=== PATIENT | male | born 1960 | race Caucasian/White ===

== ENCOUNTER 2018-06-27 13:58 | Emergency (ER) | payer SELFPAY ==
[~2018-06-27] VITALS: Ht 182.9 cm; Wt 70.3 kg
[2018-06-27 14:36] VITALS: Ht 182.9 cm; Wt 70.3 kg
[2018-06-27 15:03] LABS: APPEARANCE CLEAR (CLEAR); BILIRUBIN NEGATIVE (NEGATIVE); COLOR YELLOW (YELLOW); GLUCOSE NEGATIVE (NEGATIVE); KETONE NEGATIVE (NEGATIVE); NITRITE NEGATIVE (NEGATIVE); PROTEIN NEGATIVE (NEGATIVE); SPECIFIC GRAVITY 1.015 (1.005-1.020); UROBILINOGEN NORMAL (NORMAL)
[2018-06-27 15:14] LABS: UDS - AMPHET POSITIVE QUAL (NEGATIVE); UDS - BARB NEGATIVE QUAL (NEGATIVE); UDS - BENZO NEGATIVE QUAL (NEGATIVE); UDS - COCAINE NEGATIVE QUAL (NEGATIVE); UDS - OPIATE NEGATIVE QUAL (NEGATIVE); UDS - PCP NEGATIVE QUAL (NEGATIVE); UDS - THC NEGATIVE QUAL (NEGATIVE)
[2018-06-27 15:27] LABS: BASOPHILS 0.3 % (0-2); EOSINOPHILS 0.3 % (0-7); HEMATOCRIT 40.3 % (42.0-54.0); HEMOGLOBIN 14.5 g/dL (13.5-17.5); IMMATURE GRANULOCYTES 0.5 % (0-5); LYMPHOCYTES 38.4 % (15-50); MCH 36.4 pg (26.0-34.0); MCV 101.3 fL (80.0-100.0); MEAN PLATELET VOLUME 10.7 fL (7.4-10.4); MONOCYTES 10.1 % (2-11); NEUTROPHILS 50.4 % (40-80); PLATELET COUNT 109 10x3/uL (130-400); RBC 3.98 10x6/uL (4.20-6.10); WBC 5.7 10x3/uL (4.8-10.8)
[2018-06-27 15:47] LABS: ALBUMIN 3.7 g/dL (3.4-5.0); ALKALINE PHOSPHATASE 56 U/L (46-116); ALT (SGPT) 47 U/L (10-68); BILIRUBIN - TOTAL 0.36 mg/dL (0.2-1.3); CALC OSMOLALITY 272 mosm/kg (275-300); CALCIUM 8.7 mg/dL (8.5-10.1); CARBON DIOXIDE 26.2 mmol/L (21.0-32.0); CHLORIDE - SERUM 101 mmol/L (98-107); CREATININE - SERUM 0.8 mg/dL (0.6-1.3); GLUCOSE 82 mg/dL (74-106); PROTEIN - SERUM 7.8 g/dL (6.4-8.2); SODIUM 138 mmol/L (136-145); UREA NITROGEN 8 mg/dL (7-18); eGFR NON AFRICAN AMERICAN > 90 mL/min (90-120)
[2018-06-27 23:53] VITALS: BP 122/74
== END 2018-06-27 23:54 | disposition home or self-care (01) ==
LOC: D.ER 13:58
PROVIDERS: Family Medicine
DX: F10.129 Alcohol abuse with intoxication, unspecified (principal); F32.9 Major depressive disorder, single episode, unspecified; F17.200 Nicotine dependence, unspecified, uncomplicated

== ENCOUNTER 2019-11-06 16:13 | Emergency (ER) | payer MEDICAID ==
[~2019-11-06] VITALS: Ht 182.9 cm; Wt 79.5 kg
[2019-11-06 16:29] VITALS: Ht 182.9 cm; Wt 79.5 kg
[2019-11-06 16:55] LABS: BASOPHILS 0.3 % (0-2); EOSINOPHILS 1.4 % (0-7); HEMATOCRIT 42.5 % (42.0-54.0); HEMOGLOBIN 15.1 g/dL (13.5-17.5); IMMATURE GRANULOCYTES 0.3 % (0-5); LYMPHOCYTES 36.9 % (15-50); MCHC 35.5 g/dL (31.0-37.0); MCV 104.2 fL (80.0-100.0); MONOCYTES 11.1 % (2-11); PLATELET COUNT 91 10x3/uL (130-400); RBC 4.08 10x6/uL (4.20-6.10); RDW 13.1 % (11.5-14.5); WBC 7.9 10x3/uL (4.8-10.8)
[2019-11-06 17:15] LABS: APTT 27.2 SECONDS (22.8-39.4); CALC OSMOLALITY 262 mosm/kg (275-300); CALCIUM 8.7 mg/dL (8.5-10.1); CARBON DIOXIDE 23.2 mmol/L (21.0-32.0); CHLORIDE - SERUM 100 mmol/L (98-107); CREATININE - SERUM 0.8 mg/dL (0.6-1.3); GLUCOSE 82 mg/dL (74-106); INR 0.97 (0.85-1.17); POTASSIUM - SERUM 4.1 mmol/L (3.5-5.1); PROTIME 12.4 SECONDS (11.6-15.0); SODIUM 133 mmol/L (136-145); UREA NITROGEN 7 mg/dL (7-18); eGFR NON AFRICAN AMERICAN > 90 mL/min (90-120)
[2019-11-06 17:30] LABS: ALBUMIN 3.8 g/dL (3.4-5.0); ALKALINE PHOSPHATASE 79 U/L (46-116); ALT (SGPT) 45 U/L (10-68); CKMB 1.2 U/L (0.0-3.6); CREATINE KINASE 85 UL (21-232); MAGNESIUM - SERUM 2.2 mg/dL (1.8-2.4); PROTEIN - SERUM 8.2 g/dL (6.4-8.2); TROPONIN-I < 0.017 ng/mL (0.000-0.060)
[2019-11-06 18:10] LABS: APPEARANCE CLEAR (CLEAR); BILIRUBIN NEGATIVE (NEGATIVE); COLOR YELLOW (YELLOW); GLUCOSE NEGATIVE (NEGATIVE); KETONE NEGATIVE (NEGATIVE); NITRITE NEGATIVE (NEGATIVE); PROTEIN NEGATIVE (NEGATIVE); UROBILINOGEN NORMAL (NORMAL)
[2019-11-06] MEDS ORDERED: NAPROSYN500 MG PO (18:33)
[2019-11-06] MEDS ORDERED: AMOXICILLIN500 M1 PO (18:33)
[2019-11-06 18:45] VITALS: BP 138/82
== END 2019-11-06 18:48 | disposition home or self-care (01) ==
LOC: D.ER 16:13
PROVIDERS: Family Medicine
DX: R55 Syncope and collapse (principal); K04.7 Periapical abscess without sinus; F10.129 Alcohol abuse with intoxication, unspecified; Y90.8 Blood alcohol level of 240 mg/100 ml or more; R91.1 Solitary pulmonary nodule

== ENCOUNTER 2020-05-15 14:26 | Emergency (ER) | payer MEDICAID ==
[~2020-05-15] VITALS: Ht 182.9 cm; Wt 80.9 kg
[~2020-05-15 14:26] MED LIST: AMOXICILLIN500 M1 PO; NAPROSYN500 MG PO
[2020-05-15 14:29] VITALS: Ht 182.9 cm; Wt 80.9 kg
[2020-05-15 15:04] LABS: HEMATOCRIT 42.3 % (42.0-54.0); HEMOGLOBIN 14.6 g/dL (13.5-17.5); LYMPHOCYTES 42.3 % (15-50); MCH 35.1 pg (26.0-34.0); MCHC 34.5 g/dL (31.0-37.0); MCV 101.7 fL (80.0-100.0); MEAN PLATELET VOLUME 9.8 fL (7.4-10.4); PLATELET COUNT 99 10x3/uL (130-400); RBC 4.16 10x6/uL (4.20-6.10); RDW 14.3 % (11.5-14.5); WBC 3.8 10x3/uL (4.8-10.8)
[2020-05-15 15:19] LABS: CALC OSMOLALITY 267 mosm/kg (275-300); CALCIUM 8.1 mg/dL (8.5-10.1); CARBON DIOXIDE 29.2 mmol/L (21.0-32.0); CHLORIDE - SERUM 100 mmol/L (98-107); CREATININE - SERUM 0.9 mg/dL (0.6-1.3); GLUCOSE 86 mg/dL (74-106); SODIUM 136 mmol/L (136-145); UREA NITROGEN 4 mg/dL (7-18); eGFR NON AFRICAN AMERICAN > 90 mL/min (90-120)
[2020-05-15 15:28] LABS: ALBUMIN 3.3 g/dL (3.4-5.0); ALKALINE PHOSPHATASE 69 U/L (30-120); ALT (SGPT) 33 U/L (10-68); BILIRUBIN - TOTAL 0.24 mg/dL (0.2-1.3); PROTEIN - SERUM 7.4 g/dL (6.4-8.2)
[2020-05-15 15:46] LABS: BILIRUBIN NEGATIVE (NEGATIVE); GLUCOSE NEGATIVE (NEGATIVE); KETONE NEGATIVE (NEGATIVE); NITRITE NEGATIVE (NEGATIVE); UROBILINOGEN NORMAL (NORMAL)
[2020-05-15 23:44] VITALS: BP 111/83
== END 2020-05-15 23:37 | disposition home or self-care (01) ==
LOC: D.ER 14:26
PROVIDERS: Emergency Medicine
DX: F10.129 Alcohol abuse with intoxication, unspecified (principal); Y90.8 Blood alcohol level of 240 mg/100 ml or more; S00.83XA Contusion of other part of head, initial encounter; S05.11XA Contusion of eyeball and orbital tissues, right eye, initial encounter; R51 Headache

== ENCOUNTER 2020-06-12 11:23 | Emergency (ER) | payer MEDICAID ==
[~2020-06-12] VITALS: Ht 172.7 cm; Wt 75.0 kg
[2020-06-12 11:25] VITALS: Ht 172.7 cm; Wt 75.0 kg
[2020-06-12 11:43] LABS: BASOPHILS 0.4 % (0-2); EOSINOPHILS 1.1 % (0-7); HEMATOCRIT 45.7 % (42.0-54.0); HEMOGLOBIN 15.9 g/dL (13.5-17.5); IMMATURE GRANULOCYTES 0.9 % (0-5); LYMPHOCYTES 34.2 % (15-50); MCH 36.1 pg (26.0-34.0); MCHC 34.8 g/dL (31.0-37.0); MCV 103.6 fL (80.0-100.0); MEAN PLATELET VOLUME 10.7 fL (7.4-10.4); MONOCYTES 15.1 % (2-11); NEUTROPHILS 48.3 % (40-80); PLATELET COUNT 88 10x3/uL (130-400); RBC 4.41 10x6/uL (4.20-6.10); RDW 14.9 % (11.5-14.5); WBC 4.5 10x3/uL (4.8-10.8)
[2020-06-12 12:05] LABS: CALC OSMOLALITY 271 mosm/kg (275-300); CALCIUM 8.7 mg/dL (8.5-10.1); CARBON DIOXIDE 26.8 mmol/L (21.0-32.0); CHLORIDE - SERUM 104 mmol/L (98-107); GLUCOSE 84 mg/dL (74-106); POTASSIUM - SERUM 4.5 mmol/L (3.5-5.1); SODIUM 137 mmol/L (136-145); UREA NITROGEN 10 mg/dL (7-18); eGFR NON AFRICAN AMERICAN 81 mL/min (90-120)
[2020-06-12 12:16] LABS: ALBUMIN 3.7 g/dL (3.4-5.0); ALKALINE PHOSPHATASE 66 U/L (30-120); ALT (SGPT) 31 U/L (10-68); AMYLASE - SERUM 90 U/L (25-115); BILIRUBIN - TOTAL 0.42 mg/dL (0.2-1.3); CREATINE KINASE 102 UL (21-232); LIPASE 198 U/L (73-393); MAGNESIUM - SERUM 1.9 mg/dL (1.8-2.4)
[2020-06-12 12:18] LABS: CKMB 1.2 U/L (0.0-3.6); TROPONIN-I < 0.017 ng/mL (0.000-0.060)
[2020-06-12 12:58] LABS: APTT 31.7 SECONDS (22.8-39.4); INR 0.89 (0.85-1.17); PLATELET ESTIMATE DECREASED
[2020-06-12 13:44] LABS: BILIRUBIN NEGATIVE (NEGATIVE); GLUCOSE NEGATIVE (NEGATIVE); KETONE NEGATIVE (NEGATIVE); NITRITE NEGATIVE (NEGATIVE); SPECIFIC GRAVITY 1.015 (1.005-1.020); UROBILINOGEN NORMAL (NORMAL)
[2020-06-12 13:53] LABS: UDS - AMPHET NEGATIVE QUAL (NEGATIVE); UDS - BARB NEGATIVE QUAL (NEGATIVE); UDS - BENZO NEGATIVE QUAL (NEGATIVE); UDS - COCAINE POSITIVE QUAL (NEGATIVE); UDS - OPIATE NEGATIVE QUAL (NEGATIVE); UDS - PCP NEGATIVE QUAL (NEGATIVE); UDS - THC POSITIVE QUAL (NEGATIVE)
[2020-06-12 14:38] VITALS: BP 133/76
== END 2020-06-12 14:38 | disposition home or self-care (01) ==
LOC: D.ER 11:23
PROVIDERS: Family Medicine
DX: F10.129 Alcohol abuse with intoxication, unspecified (principal); Y90.3 Blood alcohol level of 60-79 mg/100 ml; R53.1 Weakness; R42 Dizziness and giddiness